=== PATIENT | female | born 1955 | race Caucasian/White ===

== ENCOUNTER → 2016-11-17 | Outpatient (CLI) | payer OTHER ==
[2014-06-02 16:14] VITALS: BP 135/65
[~2016-11-17] MED LIST: ALLO100T PO; ASCO500C PO; ASPI-630 PO; DULO60CA6 PO; ESTR1PAT TD; FAMO20TA5 PO; LANS30CA PO; MAGN500C10 PO; MELO7.5T29 PO; MULT-208 PO; PROP20TA PO; SUMA100T4 PO; TOPI50TA8 PO; TRAZ100T12 PO
--- NOTE | 2016-11-17 17:40 | KCIC ---
Bilateral digital screening mammograms: Reason for examination: Routine screening. Comparison is made to previous studies dated back to 09/08/2013. The skin and nipples show no abnormalities. No abnormal axillary lymph nodes are seen. The breast parenchyma shows scattered fibroglandular density. (Breast density: Category B.) There are no dominant masses, suspicious calcifications or architectural distortions. Benign calcifications are present. Impression: No evidence of malignancy. Recommend routine screening. BI-RADS category 2: Benign "Our facility is accredited by the [employer] Mammography Program." This patient's information has been entered into a reminder system for the patient to be notified with the results of her examination and a target date for the next mammogram. Electronically signed by: Patricia Brown MD (11/17/2016 5:37 PM)
== END | disposition home or self-care (01) ==
LOC: KCIC MAMMO 09:23
PROVIDERS: ATTEND Family Medicine
DX: Z12.31 Encounter for screening mammogram for malignant neoplasm of breast (principal)
CPT/HCPCS: G0202; 77067

== ENCOUNTER → 2017-04-02 | Outpatient (CLI) | payer OTHER ==
[2014-06-02 16:14] VITALS: BP 135/65
[~2017-04-02] MED LIST changes: +ALPR0.5T PO; +ATOR20TA58 PO; +CALC-53 PO; +LANS30CA66 PO; +LORA10TA3 PO; +LOSA50TA6 PO; +PROP60CA8 PO; +PSYL1PAC7 PO; +TURM500C4 PO
[2017-04-02 09:01] LABS: BASO % 1 % (0-3); EOS % 4 % (0-3); HEMATOCRIT 39.3 % (36.0-47.0); HEMOGLOBIN 12.9 g/dL (12.0-15.5); LYMPH # 1.4 x10^3/uL (1.0-4.8); LYMPH % 24 % (24-48); MEAN CORPUSCULAR HEMOGLOBIN 28 pg (25-35); MEAN CORPUSCULAR HGB CONC 33 g/dL (31-37); MEAN CORPUSCULAR VOLUME 85 fL (79-100); MONO % 5 % (0-9); NEUT % 67 % (31-73); PLATELET COUNT 235 x10^3/uL (140-400); RED BLOOD COUNT 4.62 x10^6/uL (3.50-5.40); RED CELL DISTRIBUTION WIDTH 13.7 % (11.5-14.5); WHITE BLOOD COUNT 5.9 x10^3/uL (4.0-11.0)
[2017-04-02 09:23] LABS: INR 0.9 (0.8-1.1)
[2017-04-02 11:57] LABS: BILIRUBIN,URINE NEGATIVE (NEG); GLUCOSE,URINE NEGATIVE (NEG); NITRITE,URINE NEGATIVE (NEG); PROTEIN,URINE NEGATIVE (NEG-TRACE); UROBILINOGEN,URINE 0.2 mg/dL (0.2 mg/dL)
[2017-04-02 12:15] LABS: SQUAMOUS EPITHELIAL CELL,UR MOD /LPF
[2017-04-02 12:16] LABS: BACTERIA,URINE MODERATE /HPF (0-FEW); RBC,URINE 0 /HPF (0-2)
--- NOTE | 2017-04-02 13:26 | EKG ---
[facility] [address] [place] [address] Test Date: 2017-04-02 Test Time: 13:21:38 Pat Name: GABBY MARK Department: Room: Gender: F Coordinator [employer]: JINA : 1955 Requested By: JEAN CLAUDE ONTIVEROS Order Number: [id number] Reading MD: Deshaun Shelley Measurements Intervals [place] Rate: 81 P: 47 CA: 162 QRS: 20 QRSD: 82 T: 48 QT: 378 QTc: 440 Interpretive Statements SINUS RHYTHM Electronically Signed On 04-04-2017 8:28:51 CDT by Deshaun Shelley
--- NOTE | 2017-04-02 14:16 | RAD ---
2 views of the Chest 04/02/2017 10:09 AM Indication: JOINT CLASS HX HYPERTENSION - PREOP EVAL Comparison: None Findings: There is no focal consolidation or infiltrate identified. There is no effusion or pneumothorax. The cardiomediastinal silhouette and pulmonary vasculature are within normal limits. No osseous abnormality is identified. Impression: No evidence of acute cardiopulmonary process.
== END ==
LOC: SURGPAT 13:45
PROVIDERS: ATTEND Orthopaedic Surgery Sports Medicine
CPT/HCPCS: 36415; 71020; 81001; 82040; 85025; 85610; 85651; 85730; 87086; 87641; 93005

== ENCOUNTER 2017-04-16 10:34 | Inpatient (IN) | payer OTHER ==
[~2017-04-16] VITALS: Ht 167.6 cm; Wt 92.1 kg
[2017-04-16] VITALS (7 sets, daily range): BP systolic 111–129; BP diastolic 52–65
[~2017-04-16 10:34] MED LIST changes: +HYDROcodone/APAP 7.5/325MG 1 TAB TABLET PO PRN; +HYDROmorphone 2 MG/ML VIAL IV PRN; +IV RINGERS,LACTATED 1000ML 1,000 ML IV SCH; +LIDOCAINE 1% PF 2 ML VIAL. ID PRN; +MELOXICAM 7.5 MG TABLET PO PRN; +MORPHINE SULFATE 4 MG/ML DISP.SYRIN. IV PRN; +ONDANSETRON PF 4 MG/2 ML VIAL. IV PRN; +PROCHLORPERAZINE 10 MG/2 ML VIAL. IV PRN; +TRANEXAMIC ACID 1,000 MG in IV NS 50ML -- 1ST BAG INJ ONE; +TRANEXAMIC ACID 1,000 MG in IV NS 50ML -- 2ND BAG INJ ONE; +TV=100ml MORPHINE 5 MG, KETOROLAC 30 MG, ROPIVacaine 0.5% PF 60 ML, EPINEPH... INT ART ONE; +fentaNYL PF VIAL 100 MCG/2 ML VIAL IV PRN
[2017-04-16] MEDS ORDERED: WARF-78 PO (11:21)
[2017-04-16] MEDS ORDERED: IV DEXTROSE 5 %-0.45 % NACL 1,000 ML IV SCH (11:26)
[2017-04-16] MEDS ORDERED: diphenhydrAMINE 50 MG/ML VIAL IV PRN (11:30)
[2017-04-16] MEDS ORDERED: fentaNYL PF VIAL 100 MCG/2 ML VIAL IV PRN (11:30)
[2017-04-16] MEDS ORDERED: MORPHINE SULFATE 4 MG/ML DISP.SYRIN. IV PRN ×2 (11:30)
[2017-04-16] MEDS ORDERED: ACETAMINOPHEN 325 MG TABLET. PO PRN (11:30)
[2017-04-16] MEDS ORDERED: CALCIUM CARBONATE 500 MG TAB.CHEW PO PRN (11:30)
[2017-04-16] MEDS ORDERED: ZOLPIDEM 5 MG TABLET. PO PRN (11:30)
[2017-04-16] MEDS ORDERED: HYDROcodone/APAP 10/325 1 TAB TABLET PO PRN (11:30)
[2017-04-16] MEDS ORDERED: METOCLOPRAMIDE HCL 10 MG/2 ML VIAL. IV PRN (11:30)
[2017-04-16] MEDS ORDERED: DEXTROSE 50% 25 GM / 50ML DISP.SYRIN. IV PRN (11:30)
[2017-04-16] MEDS ORDERED: traMADol 50 MG TABLET PO PRN ×2 (11:30)
[2017-04-16] MEDS ORDERED: oxyCODONE/APAP 5/325 1 TAB TABLET PO PRN (11:30)
[2017-04-16] MEDS ORDERED: 0.9 % SODIUM CHLORIDE 10 ML DISP.SYRIN. IV PRN (11:30)
[2017-04-16] MEDS ORDERED: PROCHLORPERAZINE 10 MG/2 ML VIAL. IV PRN (11:30)
[2017-04-16] MEDS ORDERED: MORPHINE SULFATE 10 MG/ML VIAL. IV PRN (11:30)
[2017-04-16] MEDS ORDERED: MORPHINE SULFATE 2 MG/ML DISP.SYRIN. IV PRN (11:30)
[2017-04-16] MEDS ORDERED: PROCHLORPERAZINE 5 MG TABLET. PO PRN (11:30)
[2017-04-16 11:38] LABS: PROTHROMBIN TIME PATIENT 12.9 SEC (11.7-14.0)
[2017-04-16] MEDS ORDERED: FAMOTIDINE 20 MG/2 ML VIAL ONE (11:48)
[2017-04-16] MEDS ORDERED: PROPOFOL 20 ML IV ONE (11:48)
[2017-04-16] MEDS ORDERED: LIDOCAINE 2% PF Vial for OR 5 ML VIAL. ONE (11:48)
[2017-04-16] MEDS ORDERED: MIDAZOLAM HCL/PF 2 MG/2 ML VIAL. ONE (11:48)
[2017-04-16] MEDS ORDERED: ONDANSETRON PF 4 MG/2 ML VIAL. ONE (11:48)
[2017-04-16] MEDS ORDERED: ROCURONIUM 50 MG/5 ML VIAL. ONE (11:48)
[2017-04-16] MEDS ORDERED: SUMAtriptan SUCCINATE 100 MG TABLET PO PRN (12:00)
[2017-04-16] MEDS ORDERED: ALPRAZolam 0.5 MG TABLET PO PRN (12:00)
--- NOTE | 2017-04-16 12:10 | PDOC ---
BRIEF OPERATIVE NOTE Date: Apr 16, 2017 Pre-Op Diagnosis R hip primary DJD Post-Op Diagnosis same Procedure Performed R RM Surgeon Lauri Dining Services Director Priscilla Anesthesiologist [place] Anesthesia Type: General, Local Blood Loss 450mL IV Fluid see Anes Urine Output NA Specimens Obtained bone Findings advanced DJD R hip Complications none Operative Note dictated JEAN CLAUDE ONTIVEROS II, MD Apr 16, 2017 12:10
[2017-04-16] MEDS ORDERED: fentaNYL PF VIAL 100 MCG/2 ML VIAL ONE (13:39)
[2017-04-16] MEDS ORDERED: GLYCOPYRROLATE 1 MG/5 ML VIAL. ONE (13:39)
[2017-04-16] MEDS ORDERED: SEVOFLURANE > 120 MINUTES. IH ONE (14:23)
[2017-04-16] MEDS: SENNOSIDES/DOCUSATE 8.6/50MG TABLET. PO SCH (15:00)
[2017-04-16] MEDS: fentaNYL PF VIAL 100 MCG/2 ML VIAL IV PRN ×4 (15:05→19:19)
--- NOTE | 2017-04-16 15:05 | OP ---
DATE OF SURGERY: 04/16/2017 SURGEON: Santiago Ontiveros MD RAIL MAINTENANCE WORKER: Patricia Wells. ANESTHESIA: General. PREOPERATIVE DIAGNOSIS: Advanced right hip primary degenerative joint disease. POSTOPERATIVE DIAGNOSIS: Advanced right hip primary degenerative joint disease. PROCEDURE PERFORMED: Right total hip arthroplasty. COMPLICATIONS: None. ESTIMATED BLOOD LOSS: 450 mL. FINDINGS: Advanced primary degenerative joint disease at her hip. SPECIMENS: Bone was sent to pathology. COMPONENTS INSERTED: 1. A 52 mm outer diameter R3 Gardner and Nephew shell with a 20 degree posteriorly directed acetabular liner. 2. Size 3 standard Anthology femoral component. 3. A 36 -3 Oxinium femoral head. COMPLICATIONS: None. REASON FOR PROCEDURE: The patient is a very pleasant 62-year-old female with severe and progressive right hip pain that failed conservative therapy such as intra-articular injections, rehabilitation and exercise program and anti-inflammatories. We had a discussion of risks, benefits, alternatives of the above surgery and she elected to proceed. DESCRIPTION OF PROCEDURE: The patient was greeted in the preoperative area by myself. Correct extremity marked and verified. She was taken back to the operative suite and antibiotics were started en route. Once in the OR, she was transferred gently supine to the OR table and secured to the bed with all pressure points padded. After we laid her down in a lateral decubitus position with the right side up, she was secured to the bed with hip positioning device and seatbelt. We then proceeded to prep and drape the right lower extremity and hip in our usual sterile fashion and conducted our standard preoperative timeout. After this, I palpated and marked her surface anatomy and anselmo a line for my standard posterolateral skin incision and incised skin with a scalpel. I dissected subcutaneous tissue with electrocautery until I identified the fascia and used a Chamorro elevator to sweep aside the adherent subcutaneous tissue to the fascia for later identification and repair. We brought in a padded Landin and the hip was placed in slight abduction and I incised the fascia in line with skin incision and bluntly dissected the gluteus jeni. I then swept aside bursal tissue and identified the quadratus and piriformis and took these down with electrocautery and tagged the piriformis for later identification and repair. I then incised the hip capsule and tagged the ends of this for later identification and repair as well. We placed a Charnley retractor. I was having a little bit more difficulty with mobilizing her hip and so I released 1 cm of the gluteus jeni tendon. This helped somewhat. After incising the hip capsule, I then delivered the femoral head and dislocated the hip. I palpated and marked reproducible points and measured for length and offset as well as for my neck cut and made my neck cut. I delivered the femoral head from the operative field and inspected the acetabulum and placed my acetabular retractors. I excised the labrum, the soft tissues from the floor of the acetabulum and the labrum. After this, I began reaming and started with a 42 and reamed up to a 52, which gave a really good fit with the reamer and I felt that I had removed adequate bone. I had a good bleeding bony bed. After this, I impacted my shell into position referencing the transverse acetabular ligament and the cross bar attachment. After ensuring it had seated well, I palpated for the greater sciatic notch and then placed a screw into the posterior column, which had good purchase. I then irrigated out the operative field and impacted my polyethylene liner into place. It should be noted that I did irrigate out the operative field and especially the acetabulum prior to impacting my cup as well. With my liner in place and fully seated, confirmed under direct visualization, I removed my acetabular retractors and delivered the proximal femur in the operative field by manipulating the leg and my proximal femoral retractor. I used a cookie cutting osteotome laterally and then my lateralizing reamer after a canal finding reamer. I then began broaching starting with the smallest size and broached up to a size 3, which gave a good fit and fill proximally. I then trialed different head sizes, both redid my measurements and I was happy with the -3. I felt that the +0 lengthened her leg a little bit too much. She still had really good stability and range of motion with the -[address] with this standard broach as well. After this, I removed all trial components, irrigated out the operative field again thoroughly and impacted my femoral stem in position. I then trialed the heads again and still felt the -3 gave the best fit, stability, range of motion and leg length. I then redislocated the femoral head, and washed and dried the Perry taper region and impacted my Oxinium head into place and then re-reduced the hip after irrigating everything out again. I tested range of motion and stability again and was happy with everything. I then injected my periarticular mixture into the paula-incisional area. After this, I closed capsule with simple interrupted #2 Ethibond. Piriformis was reapproximated through drill holes to its attachment. I released the Charnley retractor and repaired the gluteus jeni. After this, I then placed the hip in slight abduction again and repaired the fascia with running #2 Quill. An inverted interrupted 0 followed by inverted interrupted 2-0 in a multilayer fashion was used for subcutaneous tissue followed by running 4-0 Monocryl in subcuticular fashion for skin. A DONNA wound dressing was then applied. Prior to completion of wound closure, all counts were reported as correct x 2. No complications. The patient tolerated the surgery well. At the conclusion of surgery, she was awakened from anesthesia, laid gently supine and then transferred gently supine to the hospital bed. She was taken to PACU in stable and extubated condition. Postoperative plan is to [facility] and antibiotic prophylaxis. She will also likely receive IV pain medicine. We will get her started on her rehabilitation. SANTIAGO ONTIVEROS MD DR: ZENA/tin JOB#: [id number] / [id number] TARA
[2017-04-16] MEDS ORDERED: WARFARIN 7.5 MG TABLET. PO ONE (16:00)
--- NOTE | 2017-04-16 16:25 | RAD ---
Indication: Postop right hip replacement. Technique: AP pelvis was obtained, centered lower to include the entirety of the right femoral prosthesis. Findings: Right hip arthroplasty has been performed. Hardware is well seated. There is no perihardware lucency. There is no fracture or malalignment on this single view. There is gas in the soft tissues. Impression: Expected postoperative findings of a right hip arthroplasty.
[2017-04-16] MEDS: KETOROLAC 30 MG, BUPIVACAINE MPF 0.25% 20 ML, EPINEPHrine 0.5 MG in TOTAL VOLUME SYRING... INT ART SCH (18:00)
[2017-04-16] MEDS: FERROUS SULFATE 325 MG TABLET. PO SCH (18:13)
[2017-04-16] MEDS: FAMOTIDINE 20 MG TABLET. PO SCH (21:14)
[2017-04-16] MEDS: PROPRANOLOL ER 60 MG CAP.SA.24H. PO SCH (21:14)
[2017-04-16] MEDS: CETIRIZINE HCL 10 MG TABLET. PO SCH (21:14)
[2017-04-16] MEDS: traZODone 100 MG TABLET. PO SCH (21:14)
[2017-04-16] MEDS: CELECOXIB 200 MG CAPSULE. PO SCH (21:14)
[2017-04-16] MEDS: ATORVASTATIN CALCIUM 20 MG TABLET PO SCH (21:14)
[2017-04-16] MEDS: DULoxetine HCL 30 MG CAPSULE.DR PO SCH (21:14)
[2017-04-16] MEDS: CALCIUM CARB/VIT D3 500/200 TABLET. PO SCH (21:14)
[2017-04-16] MEDS: oxyCODONE/APAP 7.5/325 1 TAB TABLET PO PRN (22:00)
[2017-04-17 03:00] VITALS: BP 112/59
[2017-04-17] MEDS: oxyCODONE/APAP 7.5/325 1 TAB TABLET PO PRN ×2 (04:14→20:50)
[2017-04-17 05:22] LABS: INR 1.1 (0.8-1.1); PROTHROMBIN TIME PATIENT 13.5 SEC (11.7-14.0)
[2017-04-17 05:23] LABS: HEMOGLOBIN 10.8 g/dL (12.0-15.5); RED BLOOD COUNT 3.91 x10^6/uL (3.50-5.40); RED CELL DISTRIBUTION WIDTH 13.4 % (11.5-14.5); WHITE BLOOD COUNT 10.5 x10^3/uL (4.0-11.0)
[2017-04-17] MEDS ORDERED: MAGNESIUM HYDROXIDE 2,400 MG/30 ML ORAL.SUSP. PO PRN (06:00)
[2017-04-17] MEDS: KETOROLAC 30 MG, BUPIVACAINE MPF 0.25% 20 ML, EPINEPHrine 0.5 MG in TOTAL VOLUME SYRING... INT ART SCH (06:00)
[2017-04-17 06:31] VITALS: BP 107/59
[2017-04-17] MEDS: ALLOPURINOL 100 MG TABLET. PO SCH (08:18)
[2017-04-17] MEDS: SENNOSIDES/DOCUSATE 8.6/50MG TABLET. PO SCH (08:19)
[2017-04-17] MEDS: DULoxetine HCL 30 MG CAPSULE.DR PO SCH ×2 (08:19→20:51)
[2017-04-17] MEDS: PANTOPRAZOLE 40 MG TABLET.DR. PO SCH (08:19)
[2017-04-17] MEDS: LOSARTAN POTASSIUM 50 MG TABLET. PO SCH (08:19)
[2017-04-17] MEDS: MULTIVITAMIN with MINERAL TABLET. PO SCH (08:19)
[2017-04-17] MEDS: CELECOXIB 200 MG CAPSULE. PO SCH ×2 (08:19→20:50)
[2017-04-17] MEDS: FERROUS SULFATE 325 MG TABLET. PO SCH ×2 (08:19→16:22)
[2017-04-17] MEDS: TOPIRAMATE 25 MG TABLET. PO SCH (08:20)
[2017-04-17] MEDS: HYDROcodone/APAP 7.5/325MG 1 TAB TABLET PO PRN ×3 (08:20→16:24)
[2017-04-17] MEDS ORDERED: PSYLLIUM HUSK (SUGAR FREE) 1 PKT PACKET PO PRN (09:00)
--- NOTE | 2017-04-17 13:06 | DISCH ---
DISCHARGE INSTRUCTIONS Condition on Discharge Condition on Discharge: Stable Activity After Discharge Activity Instructions for Disc: Other, see below Bathing Instructions: Shower-keep dressing dry Weight Bearing Status after Di: As tolerated Diet after Discharge Diet after Discharge: Regular Wound Incision Care Wound/Incision Care: Ice to area for comfort, Keep wound/cast CDI, Do not change dressing Contacting the [facility] after DC Call your doctor for: Concerns you may have Follow-Up Follow up with: Lauri in 2 wks JEAN CLAUDE ONTIVEROS II, MD Apr 17, 2017 13:06
--- NOTE | 2017-04-17 13:10 | PDOC ---
ORTHO PROGRESS NOTES Subjective Doing well, up and walking, pain tolerable Vitals Vital Signs Date Time Temp Pulse Resp B/P (MAP) Pulse Ox O2 Delivery O2 Flow Rate FiO2 04/17/17 12:41 Room Air 04/17/17 08:19 79 107/59 04/17/17 06:31 98.1 20 96 98.1 04/16/17 19:19 2.0 Labs Laboratory Tests Test 04/16/17 11:08 04/17/17 04:50 Prothrombin Time 12.9 SEC (11.7-14.0) 13.5 SEC (11.7-14.0) Prothromb Time International Ratio 1.0 (0.8-1.1) 1.1 (0.8-1.1) Activated Partial Thromboplast Time 26 SEC (24-38) White Blood Count 10.5 x10^3/uL (4.0-11.0) Red Blood Count 3.91 x10^6/uL (3.50-5.40) Hemoglobin 10.8 g/dL (12.0-15.5) Hematocrit 33.0 % (36.0-47.0) Mean Corpuscular Volume 84 fL (79-100) Mean Corpuscular Hemoglobin 28 pg (25-35) Mean Corpuscular Hemoglobin Concent 33 g/dL (31-37) Red Cell Distribution Width 13.4 % (11.5-14.5) Platelet Count 186 x10^3/uL (140-400) Laboratory Tests Test 04/17/17 04:50 White Blood Count 10.5 x10^3/uL (4.0-11.0) Red Blood Count 3.91 x10^6/uL (3.50-5.40) Hemoglobin 10.8 g/dL (12.0-15.5) Hematocrit 33.0 % (36.0-47.0) Mean Corpuscular Volume 84 fL (79-100) Mean Corpuscular Hemoglobin 28 pg (25-35) Mean Corpuscular Hemoglobin Concent 33 g/dL (31-37) Red Cell Distribution Width 13.4 % (11.5-14.5) Platelet Count 186 x10^3/uL (140-400) Prothrombin Time 13.5 SEC (11.7-14.0) Prothromb Time International Ratio 1.1 (0.8-1.1) Notes She is awake and alert and walking in her room. Incision is clean dry and intact , dressing intact. Normal motor and sensation distally Assessment and Plan She is doing well, we discussed going home tomorrow. She would like to do outpatient physical therapy. JEAN CLAUDE ONTIVEROS II, MD Apr 17, 2017 13:10
[2017-04-17] MEDS ORDERED: SUMAtriptan SUCCINATE 25 MG TABLET PO PRN (13:15)
[2017-04-17] MEDS ORDERED: WARFARIN 5 MG TABLET. PO ONE (16:00)
[2017-04-17] MEDS ORDERED: BISACODYL 10 MG SUPP.RECT. PR PRN (16:00)
[2017-04-17 18:06] VITALS: BP 122/68
[2017-04-17] MEDS: FAMOTIDINE 20 MG TABLET. PO SCH (20:50)
[2017-04-17] MEDS: ATORVASTATIN CALCIUM 20 MG TABLET PO SCH (20:50)
[2017-04-17] MEDS: traZODone 100 MG TABLET. PO SCH (20:51)
[2017-04-17] MEDS: CALCIUM CARB/VIT D3 500/200 TABLET. PO SCH (20:51)
[2017-04-17] MEDS: CETIRIZINE HCL 10 MG TABLET. PO SCH (20:51)
[2017-04-17] MEDS: PROPRANOLOL ER 60 MG CAP.SA.24H. PO SCH (20:51)
[2017-04-18] MEDS: oxyCODONE/APAP 7.5/325 1 TAB TABLET PO PRN ×4 (01:53→15:05)
[2017-04-18 04:53] VITALS: BP 100/59
[2017-04-18 05:31] LABS: INR 1.4 (0.8-1.1); PROTHROMBIN TIME PATIENT 16.3 SEC (11.7-14.0)
[2017-04-18 05:32] LABS: HEMATOCRIT 30.5 % (36.0-47.0); HEMOGLOBIN 10.3 g/dL (12.0-15.5)
[2017-04-18] MEDS: PANTOPRAZOLE 40 MG TABLET.DR. PO SCH (07:10)
[2017-04-18] MEDS: FERROUS SULFATE 325 MG TABLET. PO SCH (07:58)
[2017-04-18] MEDS: CELECOXIB 200 MG CAPSULE. PO SCH (07:58)
[2017-04-18] MEDS: ALLOPURINOL 100 MG TABLET. PO SCH (07:58)
[2017-04-18] MEDS: DULoxetine HCL 30 MG CAPSULE.DR PO SCH (07:58)
[2017-04-18] MEDS: MULTIVITAMIN with MINERAL TABLET. PO SCH (07:58)
[2017-04-18] MEDS: SENNOSIDES/DOCUSATE 8.6/50MG TABLET. PO SCH (07:59)
[2017-04-18] MEDS: TOPIRAMATE 25 MG TABLET. PO SCH (07:59)
[2017-04-18] MEDS: LOSARTAN POTASSIUM 50 MG TABLET. PO SCH (08:02)
--- NOTE | 2017-04-18 08:56 | PDOC ---
ORTHO PROGRESS NOTES Subjective Feeling well, pain tolerable. No dizziness, lightheadedness Vitals Vital Signs Date Time Temp Pulse Resp B/P (MAP) Pulse Ox O2 Delivery O2 Flow Rate FiO2 04/18/17 08:02 80 88/51 04/18/17 05:50 20 Room Air 04/18/17 04:53 97.9 93 97.9 Labs Laboratory Tests Test 04/16/17 11:08 04/17/17 04:50 04/18/17 04:45 Prothrombin Time 12.9 SEC (11.7-14.0) 13.5 SEC (11.7-14.0) 16.3 SEC (11.7-14.0) Prothromb Time International Ratio 1.0 (0.8-1.1) 1.1 (0.8-1.1) 1.4 (0.8-1.1) Activated Partial Thromboplast Time 26 SEC (24-38) White Blood Count 10.5 x10^3/uL (4.0-11.0) Red Blood Count 3.91 x10^6/uL (3.50-5.40) Hemoglobin 10.8 g/dL (12.0-15.5) 10.3 g/dL (12.0-15.5) Hematocrit 33.0 % (36.0-47.0) 30.5 % (36.0-47.0) Mean Corpuscular Volume 84 fL (79-100) Mean Corpuscular Hemoglobin 28 pg (25-35) Mean Corpuscular Hemoglobin Concent 33 g/dL (31-37) 34 g/dL (31-37) Red Cell Distribution Width 13.4 % (11.5-14.5) Platelet Count 186 x10^3/uL (140-400) Laboratory Tests Test 04/18/17 04:45 Hemoglobin 10.3 g/dL (12.0-15.5) Hematocrit 30.5 % (36.0-47.0) Mean Corpuscular Hemoglobin Concent 34 g/dL (31-37) Prothrombin Time 16.3 SEC (11.7-14.0) Prothromb Time International Ratio 1.4 (0.8-1.1) Notes A and A walking in [place], dressing intact remains NVI RLE Assessment and Plan home with outpatient PT f/u 2 wks JEAN CLAUDE ONTIVEROS II, MD Apr 18, 2017 08:56
[2017-04-18 11:15] VITALS: BP 100/54
[2017-04-18] MEDS ORDERED: WARFARIN 5 MG TABLET. PO ONE (14:00)
--- NOTE | 2017-04-19 11:51 | PATHOLOGY ---
PATHOLOGY REPORT * * * * * * * * FINAL DIAGNOSIS: Femoral head, right total hip arthroplasty: - Advanced degenerative arthritis. (JPM:mmraulito; 04/19/2017) REPORT ELECTRONICALLY SIGNED BY: Everett Rodarte M.D. DATE/TIME: 04/19/2017 11:50 * * * * * * * * GROSS PATHOLOGY: Received in formalin labeled "Gabby Dougherty, right hip bone and tissue," is a femoral head measuring 6.0 x 5.3 x 5.3 cm in greatest dimensions. The articular surface is lockhart-white with areas of eburnation over 50% of the surface. Osteophytes are present. Sectioning the bone reveals lockhart-white unremarkable cut surfaces. Additionally present within the container are multiple fragments of lockhart-brown bony tissue measuring in aggregate 10.3 x 9.2 x 1.0 cm. No gross abnormalities are identified. Gis Software Engineer tissue is submitted in cassette A1, following decalcification. ([facility]; 04/17/2017) INITIAL CPT CODE(S): A; 40217, 76062 Professional services performed [place] [facility] [address] Technical services performed by [facility] at [address] [place] [address]. SPECIMEN(S) RECEIVED: A.Right hip bone and tissue CLINICAL HISTORY: Right hip pain, primary osteoarthritis of right hip PATIENT: GABBY DOUGHERTY /AGE: 8 1955 (Age: 62) PATIENT #: [id number] ALT CASE #: SPECIMEN COLLECTION DATE: 04/16/2017 SPECIMEN RECEIVED DATE: 04/17/2017 [facility] - [address] [place] [address] - PHONE: [phone] * * * END OF REPORT * * *
== END 2017-04-18 15:38 | disposition home or self-care (01) | DRG 470 ==
LOC: OPSVCIP 10:34 → 4 SOUTHEST 16:28
PROVIDERS: ADMIT Orthopaedic Surgery Sports Medicine; ATTEND Orthopaedic Surgery Sports Medicine
PROC: 0SR90J9 Replacement of Right Hip Joint with Synthetic Substitute, Cemented, Open Approach (ICD-10-PCS; principal; 2017-04-16 11:55)
DX: M16.11 Unilateral primary osteoarthritis, right hip (principal); E78.5 Hyperlipidemia, unspecified; K21.9 Gastro-esophageal reflux disease without esophagitis; M79.7 Fibromyalgia; I10 Essential (primary) hypertension; M85.80 Other specified disorders of bone density and structure, unspecified site
CPT/HCPCS: 36415; 72170; 85014; 85018; 85027; 85610; 85730; 86850; 86900; 86901; 88304; 88311; C1713; J0171; J0690; J0780; J1885; J2250; J2270; J2405; J2704; J2795; J3010; J3490; J7030; J7120; S0028; 97116; 97150; 97530; 97535; J2001

== ENCOUNTER → 2017-12-19 | Outpatient (CLI) | payer OTHER | END | disposition home or self-care (01) | LOC: KCIC MAMMO 09:00 | DX: Z12.31 Encounter for screening mammogram for malignant neoplasm of breast (principal) | CPT/HCPCS: 77063; 77067 ==

== ENCOUNTER → 2017-12-24 | Outpatient (CLI) | payer OTHER | END | disposition home or self-care (01) | LOC: KCIC US 13:04 | DX: R92.8 Other abnormal and inconclusive findings on diagnostic imaging of breast (principal) | CPT/HCPCS: 76641 ==

== ENCOUNTER → 2018-07-22 | Outpatient (CLI) | payer OTHER ==
[~2018-07-22] MED LIST changes: -HYDROcodone/APAP 7.5/325MG 1 TAB TABLET PO PRN; -HYDROmorphone 2 MG/ML VIAL IV PRN; -IV RINGERS,LACTATED 1000ML 1,000 ML IV SCH; -LIDOCAINE 1% PF 2 ML VIAL. ID PRN; +LOSA-73 PO; -LOSA50TA6 PO; -MELOXICAM 7.5 MG TABLET PO PRN; -MORPHINE SULFATE 4 MG/ML DISP.SYRIN. IV PRN; -ONDANSETRON PF 4 MG/2 ML VIAL. IV PRN; -PROCHLORPERAZINE 10 MG/2 ML VIAL. IV PRN; -TRANEXAMIC ACID 1,000 MG in IV NS 50ML -- 1ST BAG INJ ONE; -TRANEXAMIC ACID 1,000 MG in IV NS 50ML -- 2ND BAG INJ ONE; +TRAZ-86 PO; -TRAZ100T12 PO; -TV=100ml MORPHINE 5 MG, KETOROLAC 30 MG, ROPIVacaine 0.5% PF 60 ML, EPINEPH... INT ART ONE; +WARF-78 PO; -fentaNYL PF VIAL 100 MCG/2 ML VIAL IV PRN
--- NOTE | 2018-07-22 16:45 | KCIC ---
Right breast ultrasound: Reason for examination: Follow-up nodule. Comparison is made to previous study dated 12/24/2017. Ultrasound examination was performed with attention to the 3:00 position and the axilla. A hypoechoic circumscribed lesion persists in the 3:00 position 6 cm from the nipple and appears to measure 2.2 mm in greatest dimension which is a decrease in overall size. No new cystic or solid lesions are seen. No abnormal appearing lymph nodes are seen in the axilla. IMPRESSION: Benign-appearing fibrocystic lesion at the 3:00 position which shows interval decrease in size. No suspicious abnormalities are seen. Recommend routine mammographic follow-up. BI-RADS Category 2: Benign. "Our facility is accredited by the [employer] Mammography Program." This patient's information has been entered into a reminder system for the patient to be notified with the results of her examination and a target date for the next mammogram. Electronically signed by: Patricia Brown MD (07/22/2018 4:42 PM) [id number]
== END | disposition home or self-care (01) ==
LOC: KCIC US 13:09
PROVIDERS: ATTEND Family Medicine
DX: R92.8 Other abnormal and inconclusive findings on diagnostic imaging of breast (principal)
CPT/HCPCS: 76641

== ENCOUNTER → 2019-03-05 | Outpatient (CLI) | payer OTHER ==
[~2019-03-05] MED LIST changes: +PROP60CA36 PO; -PROP60CA8 PO
--- NOTE | 2019-03-05 14:03 | KCIC ---
Bilateral digital screening mammograms with 3-D tomosynthesis: Reason for examination: Routine screening. Comparison is made to previous studies dated 12/19/2017 and 11/17/2016. Bilateral mammograms in CC and oblique projections were obtained with 2-D imaging and 3-D tomosynthesis imaging on a Siemens Inspiration unit and reviewed on the workstation. Interpretation was made with the benefit of CAD. The skin and nipples show no abnormalities. No abnormal axillary lymph nodes are seen. The breast parenchyma shows scattered fatty and fibroglandular density. (Breast density: Category B.) There are a few small nodular asymmetries which are unchanged. There are no new dominant masses, suspicious calcifications or architectural distortion. Benign calcifications are present. Impression: No evidence of malignancy. Recommend routine screening. BI-RAD Category 2: Benign. "Our facility is accredited by the [employer] Mammography Program." This patient's information has been entered into a reminder system for the patient to be notified with the results of her examination and a target date for the next mammogram. Electronically signed by: Patricia Brown MD (03/05/2019 2:00 PM) [id number]
== END | disposition home or self-care (01) ==
LOC: KCIC MAMMO 09:12
PROVIDERS: ATTEND Family Medicine
DX: Z12.31 Encounter for screening mammogram for malignant neoplasm of breast (principal); N64.89 Other specified disorders of breast
CPT/HCPCS: 77063; 77067

== ENCOUNTER → 2020-05-12 | Outpatient (CLI) | payer MEDICARE, OTHER ==
[~2020-05-12] MED LIST changes: +TRAZ-123 PO; -TRAZ-86 PO; -WARF-78 PO; +WARF5TAB2 PO
--- NOTE | 2020-05-13 10:07 | KCIC ---
BILATERAL SCREENING MAMMOGRAM, 3-D History: Routine screening. Comparison: Bilateral mammogram March 05, 2019 and prior years. Technique: MLO and CC digital tomosynthesis (3D) images obtained. Radiologist reviewed these images on dedicated workstation. Findings: Breast Tissue Density B : There are scattered areas of fibroglandular density. Mild bilateral glandular nodularity and a few benign calcifications are redemonstrated. There are no dominant masses, suspicious microcalcifications or architectural distortion. IMPRESSION: No mammographic evidence of malignancy. Recommend routine screening. BI-RADS category 2: Benign findings. The images were reviewed with computer-aided detection. Patient information is entered into reminder system with a target due date for the next screening mammogram. Mammography is the most sensitive method for finding small breast cancers, but it does not detect them all and is not a substitute for careful clinical examination. A negative mammogram does not negate a clinically suspicious finding and should not result in delay in biopsying a clinically suspicious abnormality. "Our facility is accredited by the [employer] Mammography Program." Electronically signed by: Weston Foss MD (05/13/2020 10:05 AM) [email or web address]
== END ==
LOC: KCIC MAMMO 10:05
PROVIDERS: ATTEND Family Medicine
DX: Z12.31 Encounter for screening mammogram for malignant neoplasm of breast (principal)
CPT/HCPCS: 77063; 77067

== ENCOUNTER → 2021-05-23 | Outpatient (CLI) | payer MEDICARE, OTHER ==
[~2021-05-23] MED LIST changes: -DULO60CA6 PO; +DULO60CA7 PO
--- NOTE | 2021-05-23 13:21 | KCIC ---
BILATERAL SCREENING MAMMOGRAM, 3-D History: Routine screening. Comparison: Bilateral mammogram May 12, 2020 and prior years. Technique: MLO and CC digital tomosynthesis (3D) images obtained. Radiologist reviewed these images on dedicated workstation. Findings: Breast Tissue Density B : There are scattered areas of fibroglandular density. Mild bilateral glandular nodularity and a few benign calcifications are redemonstrated. There are no dominant masses, suspicious microcalcifications or architectural distortion. IMPRESSION: No mammographic evidence of malignancy. Recommend routine screening. BI-RADS category 2: Benign findings. The images were reviewed with computer-aided detection. Patient information is entered into reminder system with a target due date for the next screening isaías mogram. Mammography is the most sensitive method for finding small breast cancers, but it does not detect the m all and is not a substitute for careful clinical examination. A negative mammogram does not negate a clinically suspicious finding and should not result in delay in biopsying a clinically suspicious a bnormality. "Our facility is accredited by the [employer] Mammography Program." Electronically signed by: Weston Foss MD (05/23/2021 1:18 PM) [email or web address]
== END ==
LOC: KCIC MAMMO 10:45
PROVIDERS: ATTEND Family Medicine
DX: Z12.31 Encounter for screening mammogram for malignant neoplasm of breast (principal)
CPT/HCPCS: 77063; 77067